=== PATIENT | male | born 1975 | race Caucasian/White ===

== ENCOUNTER 2016-09-10 10:28 | Day surgery (SDC) | payer BC ==
--- NOTE | 2016-09-06 13:36 | HP ---
PREOPERATIVE HISTORY AND PHYSICAL: DATE OF SURGERY/ADMISSION: 09/10/16 PROCEDURE: Right hand excision of mass. DATE OF OFFICE VISIT/ENCOUNTER: 09/02/16 ATTENDING SURGEON: Nohemi Castrejon MD (DICTATED BY KRISH SCHMITZ) CHIEF COMPLAINT: Mass, right hand. HISTORY OF PRESENT ILLNESS: This is a 41-year-old male who complains of a painful lump on the dorsal aspect of his right hand. It has been present for several months. It bothers him when he tries to move his fingers or when he reaches into his pocket. He is currently not working, but the things he tries to do around his house are bothersome to his hand. He would like to have the mass removed. He denies any tingling or numbness associated with it. He is right hand dominant. He has consented to proceed with surgery in the form of a right hand excision of mass. PAST MEDICAL HISTORY: 1. Fibromyalgia. 2. Chronic pain syndrome. 3. GERD. PAST SURGICAL HISTORY: 1. Cholecystectomy. 2. Several moles removed. CURRENT MEDICATIONS: 1. Alprazolam 0.5 mg daily p.r.n. 2. Cymbalta 60 mg daily. 3. Lyrica 50 mg daily. 4. Melatonin 3 mg daily. 5. Multivitamin with D3 daily. 6. Tizanidine HCL 2 mg 1 to 2 tabs daily p.r.n. 7. Vitamin D3 2000 mg daily. 8. Zaleplon 5 mg 1 tab daily. ALLERGIES: No known drug allergies. FAMILY MEDICAL HISTORY: Heart disease, hypertension, stroke, cancer, rheumatoid arthritis, multiple sclerosis. 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 He is a former smoker. He quit smoking 12 years ago, prior to that he smoked for 14 years a half a pack a day. He denies current recreational drug use and alcohol use. REVIEW OF SYSTEMS: General: Positive for weakness and fatigue. Negative for fevers, chills, or night sweats. No known problems with anesthesia in the past. HEENT: Positive for blurred vision. Negative for headache, lightheadedness, or syncopal episodes. Integumentary: Negative for abrasions, lesions, or open wounds. Cardiothoracic: Negative for hypertension, chest pain , palpitations, or edema. Pulmonary: Positive for sore throat and congestion. Negative for shortness of breath with exertion, chronic cough, or COPD. GI: Positive for GERD. Negative for nausea, vomiting, diarrhea or constipation. : Negative for nocturia, urinary frequency, urgency, history of UTIs, or kidney problems. Musculoskeletal: Positive for chronic back pain, arthritis and fibromyalgia along with current complaint. Neurological: Positive for anxiety. Negative for paresthesias, numbness, history of seizure, stroke, or epilepsy. Endocrine: Negative for diabetes or thyroid issues. Hematologic: Negative for easy bruising, anemia, excessive bleeding, or history of DVT. Infectious Disease: Negative for history of MRSA, hepatitis C, or HIV. PHYSICAL EXAMINATION GENERAL: A well-developed, well-nourished 41-year-old male, in no acute distress. VITAL SIGNS: Height 6 feet 1 inch, weight 247 pounds, pulse rate 70, blood pressure 124/78. HEENT: Normocephalic, atraumatic. Pupils are equal, round, and reactive to light and accommodation. Extraocular movements are intact. NECK: Supple. No palpable lymph nodes. Throat is clear. PULMONARY: Lungs are clear to auscultation bilaterally. No wheezes, rales or rhonchi. CARDIOVASCULAR: Regular rate and rhythm. S1, S2. No murmurs, rubs or gallops. No edema. ABDOMEN: Positive bowel sounds, soft, nontender. NEUROLOGIC: Alert and oriented x3. Cranial nerves II through XII are intact. Sensation is intact to light touch. MUSCULOSKELETAL: On exam of his right upper extremity, he has a tender mass on the dorsal aspect of his hand at the base of his second and third metacarpals with flexion and extension. His extensor tendon is clipped over the mass. The mass is tender to palpation. He has full range of motion in his fingers as well as his wrist. Neurovascular function is intact. There is a negative Tinel 's over the mass. IMAGING STUDIES: X-rays, AP, lateral and oblique of the right hand appear normal. IMPRESSION: Right hand mass. PLAN: The patient is scheduled to undergo a right hand excision of mass with Dr. Castrejon on 09/10/16. He will return to the office in 10 to 14 days postop for followup and suture removal. A prescription for Ultracet was e-scribed to the patient's pharmacy for postoperative pain management. KRISH SCHMITZ [id number]/[facility] #: [id number] [facility]PITALJamar
[~2016-09-10 10:28] MED LIST: Acetaminophen TAB* 325 MG PO PRN; Buffered Lidocaine 0.9% SYRIN* 5 ML/SYR SYRINGE INTRADERM ONE; DiMENhydriNATE IV* 50 MG/ML VIAL IV PUSH PRN; Famotidine IV* 10 MG/ML 2 ML (20 mg) IV ONE; oxyCODONE TAB* 5 MG TAB PO PRN
[2016-09-10] MEDS ORDERED: Famotidine IV* 10 MG/ML 2 ML (20 mg) ONE (10:39)
[2016-09-10] MEDS ORDERED: Buffered Lidocaine 0.9% SYRIN* 5 ML/SYR SYRINGE ONE (10:56)
[2016-09-10] MEDS ORDERED: Ondansetron INJ* 2 MG/ML VIAL ONE ×2 (12:00)
[2016-09-10] MEDS ORDERED: Ketorolac INJ* 30 MG/ML 1 ML VIAL ONE ×2 (12:00)
[2016-09-10] MEDS ORDERED: Lidocaine 2% PF * 5 ML VIAL ONE (12:00)
[2016-09-10] MEDS ORDERED: fentaNYL* 50 MCG/ML 2 ML VIAL (100 MCG VIAL) ONE (12:00)
[2016-09-10] MEDS ORDERED: Midazolam* 1 MG/ML 5 ML VIAL (5 MG) ONE (12:00)
[2016-09-10] MEDS ORDERED: Propofol* 10 MG/ML 20 ML BTL IV PUSH ONE (12:00)
[2016-09-10] MEDS ORDERED: Lidocaine 1% INJ* 10 MG/ML 30 ML SDV ONE (12:38)
[2016-09-10 13:53] VITALS: BP 120/92
--- NOTE | 2016-09-11 09:53 | OP ---
DATE OF OPERATION: 09/10/16 [facility] DATE OF : 79 SURGEON: Dr. Castrejon. ORGAN TUNER: KRISH Gandhi ANESTHESIOLOGIST: Radha Mulligan MD ANESTHESIA: Local MAC. PRE-OP DIAGNOSIS: Right hand mass. POST-OP DIAGNOSIS: Right hand mass. PROCEDURE: Remove right hand mass. ESTIMATED BLOOD LOSS: Zero. TOURNIQUET TIME: About 15 minutes. INDICATIONS FOR PROCEDURE: Rustam is a 41-year-old male who has a painful mass on the dorsal aspect of his right wrist. He presents for removal. DESCRIPTION OF PROCEDURE: The patient was brought to the operating room, was given a sedation anesthetic, and a local infiltration of 10 cc of 1% of plain lidocaine overlying the dorsal hand mass. The skin of his right hand and forearm was prepped and draped in the usual sterile fashion. The hand and forearm were exsanguinated and the tourniquet elevated to 250 mmHg. A transverse incision was made, centered over the mass. We dissected bluntly through the subcutaneous tissue, down to the mass, which appeared to be a ganglion cyst and metacarpal boss emanating from the base of the third metacarpal and the dorsal aspect of the capitate. The cyst was removed and then a Haleigh osteotome and rongeur were used to remove the bony prominence. The raw bone surface was covered with bone wax and the wound was irrigated. The skin edges were reapproximated with 4-0 nylon suture. The wound was dressed with Xeroform, 4x4, Webril, and an Alex wrap. The patient tolerated the procedure well and was brought to the recovery room in good condition. [id number]/[facility] #: [id number] [facility]
== END 2016-09-10 14:05 | disposition home or self-care (01) ==
LOC: OREAST 10:28
PROVIDERS: ATTEND Orthopaedic Surgery
DX: M67.441 Ganglion, right hand (principal); Z87.891 Personal history of nicotine dependence
CPT/HCPCS: 88305; 88311; J1885; J2001; J2250; J2405; J2704; J3010

== ENCOUNTER 2016-10-28 08:51 | Emergency (ER) | payer BC ==
[2016-10-28 09:01] VITALS: BP 128/78
--- NOTE | 2016-10-28 09:48 | RAD ---
HISTORY: Shortness of breath COMPARISONS: None VIEWS: 4: Frontal dual-energy and lateral views of the chest. FINDINGS: CARDIOMEDIASTINAL SILHOUETTE: The cardiomediastinal silhouette is normal. ADOLFO: The adolfo are normal. PLEURA: The costophrenic angles are sharp. No pleural abnormalities are noted. LUNG PARENCHYMA: There is a calcified granuloma of the lingula ABDOMEN: The upper abdomen is clear. There is no subphrenic gas. BONES AND SOFT TISSUES: No bone or soft tissue abnormalities are noted. OTHER: None. IMPRESSION: CALCIFIED GRANULOMA OF THE LEFT LOWER LUNG. NO ACTIVE CARDIOPULMONARY DISEASE.
--- NOTE | 2016-10-28 10:07 | UC ---
Brandan Nava Angela, scribed for [facility] HealthDavid MD on 10/28/16 at 0906 . Respiratory Complaint HPI - HPI Summary HPI Summary: This pt is a 41 y/o male presenting to [facility] c/o increased SOB over the last 3-4 weeks, particularly over the last 2 weeks. Pt reports he saw his PCP at [place] 4 weeks ago who referred him to a sail cutter. He has an upcoming appointment on but comes in today because his SOB has increased and couldn't wait. 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 He reports wheezing, struggling to breathe and feels like his throat is closing off. Pt denies cough, chest pain, fever, chills, abd pain, sore throat, nausea, vomiting , decreased appetite. Pt endorses mild diarrhea. He takes medical marijuana for the pain, muscle spasms, and anxiety. Pt states he is in the process of applying for disability due to fibromyalgia. Pt has been hospitalized for Lyme' s disease. His last chest XR was a while ago. MDs Note: 41 y/o male with stable vital signs and respiratory rate of 22, blood pressure of 128/78, pulse ox of 100, c/o 4/10 discomfort with shortness of breath. 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 The pt also has fibromyalgia, raynauds, and has had a ganglion removed from the right wrist this month. He takes anti-anxiety meds and sleep aids. He has Lyme disease. He has no known allergies. Nurses Note: increased sob - History of Current Complaint Chief Complaint: UCRespiratory Stated Complaint: SOB Time Seen by Provider: 10/28/16 08:53 Hx Obtained From: Patient Onset/Duration: Lasting Weeks Aggravating Factors: Deep Breaths Alleviating Factors: Nothing Associated Signs And Symptoms: Positive: Dyspnea, Wheezing. Negative: Fever, Chills, Calf Pain - Allergies/Home Medications Allergies/Adverse Reactions: Allergies Allergy/AdvReac Type Severity Reaction Status Date / Time No Known Allergies Allergy Verified 10/28/16 08:54 PMH/Surg Hx/FS Hx/Imm Hx - Additional Past Medical History Additional PMH: PMHx: fibromyalgia osteoarthritis Other Endocrine History: DENIES: Diabetes Other Cardiovascular History: DENIES: HTN, cardiac disease Other Respiratory History: DENIES: COPD, Asthma Psychological History: Anxiety - Surgical History Surgical History: Yes Surgery Procedure, Year, and Place: gallbladder 2014 with hernia repair, [facility] - Family History Known Family History: Positive: Cardiac Disease, Other - Cancer. Mother: Multiple sclerosis, lung infection. - Social History Alcohol Use: None Substance Use Type: None Smoking Status (MU): Former Smoker Type: Cigarettes Amount Used/How Often: pack a day for 14 yrs Have You Smoked in the Last Year: No When Did the Patient Quit Smoking/Using Tobacco: age 30 - Immunization History Most Recent Influenza Vaccination: unknown Most Recent Tetanus Shot: unknown Most Recent Pneumonia Vaccination: unknown Review of Systems Constitutional: Negative Skin: Negative Eyes: Negative ENT: Negative Respiratory: Shortness Of Breath Cardiovascular: Negative Gastrointestinal: Diarrhea Motor: Negative Neurovascular: Negative Musculoskeletal: Negative Neurological: Negative All Other Systems Reviewed And Are Negative: Yes Physical Exam Triage Information Reviewed: Yes Vital Signs: Initial Vital Signs Temp 98 F 10/28/16 08:58 Pulse 74 10/28/16 08:58 Resp 22 10/28/16 08:58 BP 128/78 10/28/16 08:58 Pulse Ox 100 10/28/16 08:58 Vital Signs Reviewed: Yes - Additional Comments The patient is well-nourished in no acute distress and in no acute pain. The skin is warm and dry and skin color reflects adequate perfusion. HEENT: The head is normocephalic and atraumatic. The pupils are equal and reactive. The conjunctivae are clear and without drainage. Nares are patent and without drainage. Mouth reveals moist mucous membranes and the throat is without erythema and exudate. The external ears are intact. The ear canals are patent and without drainage. The tympanic membranes are intact. Neck is supple with full range of motion and non-tender. There are no carotid bruits. There is no neck vein distension. Respiratory: Chest is non-tender. Lungs are clear to auscultation and breath sounds are symmetrical and equal. Cardiovascular: Hear is regular rate and rhythm. There is no murmur or rub auscultated. There is no peripheral edema and pulses are symmetrical and equal. Abdomen: The abdomen is soft and non-tender. There are normal bowel sounds heard in all four quadrants and there is no organomegaly palpated. Musculoskeletal: There is no back pain noted. Extremities are non-tender with full range of motion. There is good capillary refill. There is no peripheral edema or calf tenderness elicited. Neurological: Patient is alert and oriented to person, place and time. The patient has symmetrical motor strength in all four extremities. Cranial nerves are grossly intact. Deep tendon reflexes are symmetrical and equal in all four extremities. Psychiatric: THE PATIENT IS ANXIOUS AND FEELS SHORT OF BREATH. UC Diagnostic Evaluation - Laboratory O2 Sat by Pulse Oximetry: 100 - Radiology Xray Interpretation: Positive (See Comments) - Chest XR IMPRESSION: Calcified granuloma of the left lower lung. No active cardiopulmonary disease. ED physician has reviewed this radiology report and agrees. Radiology Interpretation Completed By: Radiologist Respiratory Course/Dx - Course Course Of Treatment: Medications have been included in the original chart and reviewed. Patient is Urgent/Emergent. BP elevated due to current condition w/o HTN in PMH. On exam, THE PATIENT IS ANXIOUS AND FEELS SHORT OF BREATH. The chest XR shows calcified granuloma of the left lower lung. No active cardiopulmonary disease. ED physician has reviewed this radiology report and agrees. MDM: I discussed the pts condition with him at length. There is no evidence of structural problems except for a calcified granuloma of the left lower lung. His lung examination does not show wheezes. He is helped by various changes of position. I discussed with him other strategies to help him breathe more easily. I also discussed his anxiety with him. I will put him on a trial of albuterol with a spacer to see if this assists him and gives added information for his next appointment with a sail cutter. - Differential Dx/Diagnosis Differential Diagnosis/HQI/PQRI: CHF, Pneumothorax, Other - Pneumonia Provider Diagnoses: Dyspnea Discharge - Discharge Plan Condition: Stable Disposition: HOME Prescriptions: Albuterol HFA INHALER* [Ventolin HFA Inhaler*] 1 - 2 puff INH Q4H PRN #1 mdi PRN Reason: Shortness Of Breath Spacer/Aerosol-Holding Chamber [Aerochamber Mv] 1 mis XX Q6HR #1 mis Patient Education Materials: Dyspnea (ED), Dyspnea Scale and Exercise (ED) Referrals: Pedro Luis Christianson MD [Primary Care Provider] - Additional Instructions: WE DISCUSSED: Your x ray does not show a pneumonia or infection. You do have some chronic changes that may contribute to your feeling of shortness of breath. There is no evidence of obstruction in your throat. I have given you information about shortness of breath and a "dyspnea scale" so that you can document how you feel on different days or at different times of day to tell you doctor. As you know, try to find what feels better: cool air. Try pursed lips and holding your arms about your head to open your lungs. For your information, your x ray diagnosis is: CALCIFIED GRANULOMA OF THE LEFT LOWER LUNG. NO ACTIVE CARDIOPULMONARY DISEASE. Try albuterol and spacer, 2 puffs, 3 times a day for 7 days. Follow up with lung doctor. The documentation as recorded by the Brandan skinner Angela accurately reflects the service I personally performed and the decisions made by me, David Lorenzana MD.
== END 2016-10-28 10:10 | disposition home or self-care (01) ==
LOC: UCEAST 08:51
DX: R06.00 Dyspnea, unspecified (principal); J98.4 Other disorders of lung; Z87.891 Personal history of nicotine dependence
CPT/HCPCS: 71020; 99212; G0463

== ENCOUNTER 2017-08-02 07:14 | Emergency (ER) | payer BC ==
[2017-08-02 07:29] VITALS: BP 132/92
--- NOTE | 2017-08-30 09:25 | UC ---
Bernabe Nava Gabriel, scribed for Eve Meehan MD on 08/02/17 at 0802 . Skin Complaint HPI - HPI Summary HPI Summary: This patient is a 42 year old M presenting to [place] with a chief complaint of rashes and bug bites that began after he camped in the [facility] 10 days ago. The pt was there for 2 days and reports having two bullseye rashes that have dissipated before being seen today. The patient rates the pain 0/10 in severity. Patient reports several bites on bilateral LEs and UEs. He has been using calamine lotion, Benadryl, and tecnu-wash. Pt is unsure of is his last tetanus shot. Hx lyme. Pt will be seeing PCP tomorrow for a follow up appointment. - History of Current Complaint Chief Complaint: UCSkin Time Seen by Provider: 08/02/17 07:52 Stated Complaint: RASH Hx Obtained From: Patient Onset/Duration: Lasting Weeks - 1, Still Present Skin Exposure Onset/Duration: Weeks Ago Timing: Constant Onset Severity: Mild Current Severity: Mild Pain Intensity: 0 Pain Scale Used: 0-10 Numeric Associated Signs & Symptoms: Positive: Rash - Allergy/Home Medications Allergies/Adverse Reactions: Allergies Allergy/AdvReac Type Severity Reaction Status Date / Time No Known Allergies Allergy Verified 08/12/17 16:57 Review of Systems Constitutional: Negative - fever Skin: Rash, Other - several insect bites scattered. All Other Systems Reviewed And Are Negative: Yes PMH/Surg Hx/FS Hx/Imm Hx - Additional Past Medical History Additional PMH: lyme Neurological History: Other Other Neurological History: fibromyalgia Other History Of: Negative For: HIV, Anticoagulant Therapy - Surgical History Surgical History: Yes Surgery Procedure, Year, and Place: gallbladder 2014 with hernia repair, [facility] - Family History Known Family History: Positive: Cardiac Disease, Other - Cancer. Mother: Multiple sclerosis, lung infection. Family History: KIDNEY STONES - DAD - Social History Alcohol Use: None Substance Use Type: Marijuana Substance Use Comment - Amount & Last Used: medicinal Smoking Status (MU): Former Smoker Type: Cigarettes Amount Used/How Often: pack a day for 14 yrs Have You Smoked in the Last Year: No When Did the Patient Quit Smoking/Using Tobacco: age 30 - Immunization History Most Recent Influenza Vaccination: unknown Most Recent Tetanus Shot: unknown Most Recent Pneumonia Vaccination: unknown Physical Exam - Summary Physical Exam Summary: Appearance: Well-Nourished Eye Exam: Normal Respiratory Exam: Normal, no dyspnea, no tachypnea, normal respiratory rate. Chest non-tender, Lungs clear, Normal breath sounds, No respiratory distress, No accessory muscle use Cardiovascular Exam: Normal Cardiovascular: Heart rate regular, good general skin color, good capillary refill, No Murmur, Pulses Normal Abdominal Exam: Normal Abdomen Description: Nontender, No Organomegaly, Soft Bowel Sounds: Present Musculoskeletal Exam: Normal Musculoskeletal: Strength Intact Neurological Exam: Normal: nonfocal, grossly intact Psychological Exam: Normal: conversing easily and appropriately Skin Exam: Triage Information Reviewed: Yes Appearance: Well-Nourished Vital Signs: Initial Vital Signs Temp 98.9 F 08/02/17 07:26 Pulse 80 08/02/17 07:26 Resp 18 08/02/17 07:26 BP 132/92 08/02/17 07:26 Pulse Ox 100 08/02/17 07:26 Vital Signs Reviewed: Yes Eye Exam: Normal - grossly normal ENT Exam: Normal ENT: Positive: Normal ENT inspection, Pharynx normal Neck exam: Normal Neck: Positive: Supple, Nontender Respiratory Exam: Normal Respiratory: Positive: Chest non-tender, Lungs clear, Normal breath sounds, No respiratory distress Cardiovascular Exam: Normal Cardiovascular: Positive: RRR, Pulses Normal, Brisk Capillary Refill Abdominal Exam: Normal Abdomen Description: Positive: Nontender Musculoskeletal Exam: Normal - moves x 4 ext's gait steady Neurological Exam: Normal - grossly nonfocal Psychological Exam: Normal - conversing easily and appropriately Skin Exam: Other - several scattered lesions c/w insect bites, upper and lower ext's. + redness, c/w local dermatitis, does not appear c/w cellulitis or abscess Course/Dx - Course Course Of Treatment: Reviewed coa / tx plan, encourage pcp f/u. questions as posed answered to the best of my ability. - Diagnoses Provider Diagnoses: Insect bites, dermatitis Discharge - Sign-Out/Discharge Documenting (check all that apply): Patient Departure - Discharge Plan Condition: Stable Disposition: HOME Prescriptions: hydrOXYzine HCL TAB* [Atarax 25 MG TAB*] 25 mg PO TID PRN #30 tab PRN Reason: Itching Patient Education Materials: Insect Bite or Sting (ED), General Allergic Reaction (ED) Forms: *Work Release Referrals: Pedro Luis Christianson MD [Primary Care Provider] - Additional Instructions: Your blood pressure was elevated during today's visit, 132/92. Please follow up with your primary care provider in 1-2 weeks. Seek medical attention for worse or new problems in the meantime. Follow up Dr. Groves as scheduled tomorrow. Advise your primary care doctor and specialist of your possible tick bite. - Billing Disposition and Condition Condition: STABLE Disposition: Home The documentation as recorded by the Bernabe skinner Gabriel accurately reflects the service I personally performed and the decisions made by me, Eve Meehan MD.
== END 2017-08-02 08:30 | disposition home or self-care (01) ==
LOC: UCEAST 07:14
DX: L30.9 Dermatitis, unspecified (principal); S40.862A Insect bite (nonvenomous) of left upper arm, initial encounter; S40.861A Insect bite (nonvenomous) of right upper arm, initial encounter; S80.862A Insect bite (nonvenomous), left lower leg, initial encounter; S80.861A Insect bite (nonvenomous), right lower leg, initial encounter; W57.XXXA Bitten or stung by nonvenomous insect and other nonvenomous arthropods, initial encounter; Y93.89 Activity, other specified; Y92.89 Other specified places as the place of occurrence of the external cause; M79.7 Fibromyalgia; Z82.49 Family history of ischemic heart disease and other diseases of the circulatory system; Z80.9 Family history of malignant neoplasm, unspecified; Z83.6 Family history of other diseases of the respiratory system; Z84.1 Family history of disorders of kidney and ureter; Z87.891 Personal history of nicotine dependence
CPT/HCPCS: 87798; 99212; G0463

== ENCOUNTER 2017-08-12 16:35 | Emergency (ER) | payer BC ==
--- OUTSIDE RECORDS SUMMARY | 2017-08-12 16:45 | XMS REPORT ---
:1975 External Reference #:[id number] Author Organization [facility] Address [address] [place] [address] [place] [address] Phone [phone] Care Team Providers Name Role Phone [facility] Care Team Information Manager Of Revenue Unavailable Pedro Luis Christianson MD Primary Care Physician Unavailable Payers Type Date Identification Numbers Payment Provider Subscriber Commercial Effective: Policy Number: RODGER Kwok 2016 [id number] Group Name: [employer] [address] [address] PayID: [id number] ARTHUR Jordan [address] Medigap Part B Effective: 2016 Policy Number: RODGER Kwok [id number] Expires: 2016 PayID: [id number] [address] [address] ARTHUR Jordan [address] Workers Compensation Effective: Policy Number: Khushboo Kwok 2013 [id number] Onset: 2013 PayID: [id number] [address] [place] [address] Problems Date Description Provider Status Onset: 12/13/2016 Gallstone Jacinda Briscoe MD Active Onset: 12/28/2016 Obstructive sleep apnea Radha Burks DNP, RN, Active syndrome CREATIVE DIRECTOR-BC Onset: 12/28/2016 Hypersomnia Radha Burks DNP, RN, Active CREATIVE DIRECTOR-BC Family History Date Family Member(s) Problem(s) Comments General Arthritis General Arthritis, Osteo General Rheumatoid Arthritis General Multiple Sclerosis (MS) General Lupus General Raynaud's is in the family as well General Cancer General Heart Disease General Hypertension General Stroke Father Diverticulitis Mother Multiple Sclerosis (MS) Mother Rheumatoid Arthritis Mother Bladder Cancer Siblings 1 older brother Social History Type Date Description Comments Marital Status Lives With Spouse Occupation Unemployed Cigarette Use Former Cigarette Smoker Quit in 2008 Cigarette Use Former Cigarette Smoker 5-10 5-6 cigarettes for 15 years Cigarettes Daily ETOH Use Denies alcohol use Smoking Patient is a former smoker Recreational Drug Use Denies Drug Use Daily Caffeine Consumes on average 1 soda per day Exercise Type/Frequency Does not exercise chronic pain interferes with exercise Allergies, Adverse Reactions, Alerts Date Description Reaction Status Severity Comments 03/07/2013 NKDA active Medications Medication Date Status Form Strength Qnty SIG Indications Ordering Provider Hydroxyzine Active Tablets 25mg 90tabs Take one Rodney HCL 018 capsule/ta Germain, b every 8 M.D. hours (total of 3 per day) as needed for itching Voltaren Active Gel 1% 200uni apply 2 Rodney 018 ts grams Germain, twice M.D. daily as needed for pain to the hands Cymbalta Active Caps DR 60mg 180cap take 2 by M79.7 Rodney 017 Part s mouth Germain, every at M.D. bedtime Alprazolam Active Tablets 0.5mg 30tabs take one Rodney 017 tablet 20 Germain, minutes M.D. before bed as needed for anxiety Lyrica Active Capsules 50mg 30caps take 1 tab M79.7 Rodney 017 by mouth Germain, at at M.D. bedtime Zaleplon Active Capsules 5mg 30caps take 1 tab G47.00 Rodney 017 at bedtime Germain, daily for M.D. insomnia Z79.899 Multi Vitamin 04/21/2016 Active Tablets 1 by mouth Cheryl Sage Daily With D3 every day Aramis Crowley Tizanidine HCL 04/19/2016 Active Capsules 2mg 60caps 1 or 2 cap Z79.89 Rodney Germain, by mouth as 9 M.D. needed at night for spasms M79.7 Medical Active daily and Unknown Marijuana With prn CBD Ibuprofen 200 Active Tablets 200mg Unknown Amoxicillin Active Capsules 500mg 2 tabs by Unknown mouth twice daily for 10 days Prednisone Active Tablets Unsure as directed Unknown Tramadol 09/02/2016 - Hx Tablets 37.5-325m 16t 1 tab by Nohemi Hydrochloride/Ac 10/13/2016 g abs mouth every Aramis Castrejon etaminophen 6 hours as needed pain Cymbalta 06/28/2016 - Hx Caps 30mg 180 take 3 M79 Zsofia 09/01/2016 Part cap tabs daily .7 DENYS Shetty s Amitriptyline 04/21/2016 - Hx Tablets 10mg 30t 1 tabs by Z79 Cheryl Sage HCL 08/17/2016 abs mouth as .89 lianet Crowley 9 Karol.DLyndsey every other night at bedtime M79.7 Cymbalta 04/08/2016 - Hx Caps 30mg 180caps take 3 M79.7 Rodney 06/28/2016 Part daily tabs Aramis Groves Doxycycline 09/28/2013 - Hx Tablets 100mg 60tabs 1 by mouth Singh 03/03/2016 twice a D. day Aramis Price Cyclobenzaprine - Hx Tablets 10mg 45tabs one po bid Unknown HCL 03/30/2013 prn spasm Hydrocodone/Acetam - Hx Tablets 5-325mg 40tabs 1 q 6 hr Unknown inophen 10/15/2013 prn Zofran - Hx Tablets 8mg prn Unknown 03/03/2016 Ibuprofen - Hx Capsules 200mg 3 po tid Unknown 03/03/2016 as needed Nifedical XL - Hx Tablets ER 30mg take 1 Unknown 04/08/2016 24HR tablet by mouth once daily Naproxen - Hx Tablets 250mg 1 tablet Unknown 04/08/2016 by mouth twice a day as needed pain, with foods Vitamin D3 - Hx Capsules 2000mg 1 tabs/day Unknown 11/14/2016 Melatonin - Hx Capsules 3mg 1 tab by Unknown 12/12/2016 mouth every night at bedtime prn Benadryl Allergy - Hx Capsules 25mg Unknown 08/03/2017 Hydroxyzine HCL - Hx Tablets 25mg Unknown 08/03/2017 Medications Administered in Office Medication Date Status Form Strength Qnty SIG Indications Ordering Provider No Injection 06/09/19 Administered Injection Rodney Groves M.D. No Injection 06/09/19 Administered Injection Rodney Groves M.D. No Injection 06/09/19 Administered Injection Rodney Groves M.D. No Injection 06/09/19 Administered Injection Rodney Groves M.D. Immunizations CPT Code Status Date Vaccine Lot # [id number] Given 12/14/2016 Influenza Virus Vaccine, Quadrivalent, Split, [id number] Preservative Free Vital Signs Date Vital Result Comment 08/03/2017 Height 73 inches 6'1" Weight 248.00 lb Heart Rate 84 /min BP Systolic Sitting 126 mmHg BP Diastolic Sitting 84 mmHg Respiratory Rate 14 /min Pain Level 6 BMI (Body Mass Index) 32.7 kg/m2 06/08/2017 Height 73 inches 6'1" Weight 247.50 lb Heart Rate 60 /min BP Systolic Sitting 101 mmHg BP Diastolic Sitting 74 mmHg Respiratory Rate 14 /min Body Temperature 97.6 F BMI (Body Mass Index) 32.7 kg/m2 05/23/2017 Height 73 inches 6'1" Weight 247.00 lb Heart Rate 72 /min BP Systolic Sitting 117 mmHg BP Diastolic Sitting 81 mmHg Respiratory Rate 14 /min Pain Level 6 BMI (Body Mass Index) 32.6 kg/m2 12/28/2016 Height 73 inches 6'1" Weight 253.00 lb Heart Rate 72 /min BP Systolic Sitting 124 mmHg Rue large cuff BP Diastolic Sitting 84 mmHg Rue large cuff Respiratory Rate 14 /min O2 % BldC Oximetry 98 % On Ra BMI (Body Mass Index) 33.4 kg/m2 12/14/2016 Height 73 inches 6'1" Weight 255.00 lb w/ shoes Heart Rate 62 /min reg BP Systolic Sitting 104 mmHg Lue, lg cuff BP Diastolic Sitting 74 mmHg Lue, lg cuff Respiratory Rate 16 /min Pain Level 6 all over BMI (Body Mass Index) 33.6 kg/m2 12/13/2016 Height 73 inches 6'1" Weight 258.00 lb Heart Rate 72 /min BP Systolic Sitting 118 mmHg BP Diastolic Sitting 84 mmHg Respiratory Rate 14 /min O2 % BldC Oximetry 98 % BMI (Body Mass Index) 34.0 kg/m2 Neck Circumference in inches 18.5 10/13/2016 Height 73 inches 6'1" Weight 249.00 lb Heart Rate 80 /min BP Systolic Sitting 120 mmHg BP Diastolic Sitting 80 mmHg Respiratory Rate 14 /min Pain Level 8 BMI (Body Mass Index) 32.8 kg/m2 09/22/2016 Height 73 inches 6'1" Weight 247.00 lb Heart Rate 68 /min BP Systolic 118 mmHg BP Diastolic 80 mmHg Respiratory Rate 16 /min Body Temperature 96.5 F Pain Level 4 BMI (Body Mass Index) 32.6 kg/m2 09/08/2016 Height 73 inches 6'1" Heart Rate 80 /min BP Systolic Sitting 110 mmHg BP Diastolic Sitting 74 mmHg Respiratory Rate 14 /min Pain Level 6 09/02/2016 Height 73 inches 6'1" Weight 247.00 lb Heart Rate 70 /min BP Systolic 124 mmHg BP Diastolic 78 mmHg Respiratory Rate 16 /min Body Temperature 97.4 F Pain Level 5 BMI (Body Mass Index) 32.6 kg/m2 09/01/2016 Height 73 inches 6'1" Weight 247.00 lb Heart Rate 72 /min BP Systolic Sitting 122 mmHg BP Diastolic Sitting 68 mmHg Respiratory Rate 14 /min Pain Level 7 BMI (Body Mass Index) 32.6 kg/m2 08/17/2016 Height 73 inches 6'1" Weight 243.00 lb Heart Rate 68 /min BP Systolic Sitting 120 mmHg BP Diastolic Sitting 86 mmHg Respiratory Rate 14 /min Pain Level 7 BMI (Body Mass Index) 32.1 kg/m2 07/29/2016 Height 73 inches 6'1" Weight 246.00 lb Heart Rate 76 /min BP Systolic Sitting 124 mmHg BP Diastolic Sitting 90 mmHg Respiratory Rate 14 /min BMI (Body Mass Index) 32.5 kg/m2 06/28/2016 Weight 250.00 lb Heart Rate 71 /min BP Systolic Sitting 126 mmHg BP Diastolic Sitting 80 mmHg Respiratory Rate 15 /min Pain Level 5 O2 % BldC Oximetry 98 % 05/31/2016 Height 72.5 inches 6'0.50" Weight 247.00 lb Heart Rate 84 /min BP Systolic 110 mmHg BP Diastolic 60 mmHg O2 % BldC Oximetry 98 % BMI (Body Mass Index) 33.0 kg/m2 04/21/2016 Height 72.5 inches 6'0.50" Weight 245.00 lb Heart Rate 76 /min BP Systolic Sitting 122 mmHg BP Diastolic Sitting 84 mmHg Respiratory Rate 14 /min BMI (Body Mass Index) 32.8 kg/m2 04/19/2016 Height 72.5 inches 6'0.50" Weight 245.00 lb Heart Rate 84 /min BP Systolic Sitting 120 mmHg BP Diastolic Sitting 80 mmHg Respiratory Rate 14 /min Body Temperature 97.4 F Pain Level 7 BMI (Body Mass Index) 32.8 kg/m2 04/08/2016 Height 72.5 inches 6'0.50" Weight 242.38 lb Heart Rate 72 /min BP Systolic Sitting 120 mmHg BP Diastolic Sitting 80 mmHg Respiratory Rate 14 /min Body Temperature 98.6 F BMI (Body Mass Index) 32.4 kg/m2 03/04/2016 Height 72.5 inches 6'0.50" Weight 246.00 lb Heart Rate 72 /min BP Systolic Sitting 120 mmHg BP Diastolic Sitting 88 mmHg Respiratory Rate 14 /min Body Temperature 98.0 F BMI (Body Mass Index) 32.9 kg/m2 10/16/2013 Height 72.5 inches 6'0.50" Weight 254.00 lb Heart Rate 80 /min BP Systolic Sitting 110 mmHg BP Diastolic Sitting 62 mmHg Respiratory Rate 14 /min Body Temperature 98.2 F BMI (Body Mass Index) 34.0 kg/m2 03/30/2013 Height 72.5 inches 6'0.50" Weight 254.00 lb Heart Rate 100 /min BP Systolic Sitting 120 mmHg BP Diastolic Sitting 88 mmHg BMI (Body Mass Index) 34.0 kg/m2 03/12/2013 Height 73 inches 6'1" Weight 252.00 lb Heart Rate 68 /min BP Systolic Sitting 122 mmHg BP Diastolic Sitting 78 mmHg BMI (Body Mass Index) 33.2 kg/m2 03/07/2013 Height 73 inches 6'1" Weight 251.25 lb Heart Rate 68 /min BP Systolic Sitting 120 mmHg BP Diastolic Sitting 86 mmHg BMI (Body Mass Index) 33.1 kg/m2 Results Test Date Test Result H/L Range Note Connective Tissue Panel 05/23/2017 Anti-Nuclear Antibody 0.4 U 1 Cyclic Citrullinated Peptide <15.6 U 2 Interpretation See Comment 3 Laboratory test finding 05/23/2017 Rheumatoid Factor <10 IU/mL 0-14 4 CBC Auto Diff 05/23/2017 White Blood Count 6.5 10^3/uL 3.5-10.8 Red Blood Count 4.73 10^6/uL 4.0-5.4 Hemoglobin 14.8 g/dL 14.0-18.0 Hematocrit 44 % 42-52 Mean Corpuscular Volume 93 fL 80-94 Mean Corpuscular Hemoglobin 31 pg 27-31 Mean Corpuscular HGB Conc 34 g/dL 31-36 Red Cell Distribution Width 14 % 10.5-15 Platelet Count 344 10^3/uL 150-450 Mean Platelet Volume 8.1 um3 7.4-10.4 Abs Neutrophils 3.6 10^3/uL 1.5-7.7 Abs Lymphocytes 2.1 10^3/uL 1.0-4.8 Abs Monocytes 0.7 10^3/uL 0-0.8 Abs Eosinophils 0.1 10^3/uL 0-0.6 Abs Basophils 0.1 10^3/uL 0-0.2 Abs Nucleated RBC 0 10^3/uL Granulocyte % 54.5 % 38-83 Lymphocyte % 32.5 % 25-47 Monocyte % 10.1 % High 0-7 Eosinophil % 1.2 % 0-6 Basophil % 1.7 % 0-2 Nucleated Red Blood Cells % 0.1 Comp Metabolic Panel 05/23/2017 Sodium 137 mmol/L 133-145 Potassium 4.1 mmol/L 3.5-5.0 Chloride 102 mmol/L 101-111 Co2 Carbon Dioxide 30 mmol/L 22-32 Anion Gap 5 mmol/L 2-11 Glucose 84 mg/dL 70-100 Blood Urea Nitrogen 9 mg/dL 6-24 Creatinine 1.00 mg/dL 0.67-1.17 BUN/Creatinine Ratio 9.0 8-20 Calcium 9.5 mg/dL 8.6-10.3 Total Protein 7.2 g/dL 6.4-8.9 Albumin 4.6 g/dL 3.2-5.2 Globulin 2.6 g/dL 2-4 Albumin/Globulin Ratio 1.8 1-3 Total Bilirubin 0.80 mg/dL 0.2-1.0 Alkaline Phosphatase 43 U/L 34-104 Alt 32 U/L 7-52 Ast 20 U/L 13-39 Egfr Non- 82.8 >60 Egfr 106.4 >60 5 Laboratory test finding 05/23/2017 Vitamin D, 1,25 Dihydroxy 42 pg/mL 18- 64 6 Vitamin B12 And Folate 05/23/2017 Vitamin B12 542 pg/mL 180-914 7 Serum Folic Acid (Folate) > 20.00 ng/mL >3.99 Laboratory test finding 05/23/2017 TSH (Thyroid Stim Horm) 0.49 mcIU/mL 0.34-5.60 Hla B27 05/23/2017 Hla B27 Negative 8 Hla B27 Interp See Comment 9 Laboratory test finding 09/10/2016 Surgical Pathology SEE RESULT BELOW 10, 11 Laboratory test finding 04/21/2016 Anti Ssa/Ro <0.2 U 12 Anti SSB LA <0.2 U 13 Laboratory test finding 04/10/2016 Creatine Kinase(CK) 144 U/L 10-223 14 Angiotensin Converting Enzyme 14 U/L 8 - 53 15 Ssa/SSB Abs Igg 04/10/2016 SS-A/Ro Antibody <0.2 U 16 SS-B/La Antibody <0.2 U 17 Anca AB Ser If 04/10/2016 C-Anca Negative Negative P-Anca Negative Negative 18 Cardiolipin Igg/Igm 04/10/2016 Phospholipid Ab IgM, S < 9.4 MPL 19 Phospholipid Ab IgG < 9.4 GPL 20 Laboratory test 04/10/2016 Aso (Antistreptolysin Negative IU/mL <200 Iu/mL 21 finding O) Titer Vitamin D 1,25 04/10/2016 Vitamin D Total 25(Oh) 27.7 ng/mL Low 30-50 22 And Vitamin D,2 Vitamin D, 1,25 Dihydroxy 63 pg/mL 18-64 23 Vitamin B12 And Folate Serum 04/10/2016 Vitamin B12 679 pg/mL 180-914 24 Folic Acid (Folate) > 20.00 ng/mL >3.99 25 Celiac Panel 04/10/2016 Tissue Transglutaminase IgA Ab <1.2 U/mL 26 Immunoglobulin A 174 mg/dL 61 - 356 Celiac Interpretation See Comment 27 Laboratory test finding 03/04/2016 TSH (Thyroid Stim 1.72 mcIU/mL 0.34- 5.60 Horm) Connective Tissue Panel 03/04/2016 Anti-Nuclear Antibody 0.3 U 28 Cyclic Citrullinated Peptide <15.6 U 29 Interpretation See Comment 30 Laboratory test finding 03/04/2016 Rheumatoid Factor <15 IU/mL <15 31 CBC Auto Diff 03/04/2016 White Blood Count 9.2 10^3/uL 3.5-10.8 Red Blood Count 5.01 10^6/uL 4.0-5.4 Hemoglobin 15.4 g/dL 14.0-18.0 Hematocrit 46 % 42-52 Mean Corpuscular Volume 92 fL 80-94 Mean Corpuscular Hemoglobin 31 pg 27-31 Mean Corpuscular HGB Conc 33 g/dL 31-36 Red Cell Distribution Width 14 % 10.5-15 Platelet Count 385 10^3/uL 150-450 Mean Platelet Volume 8 um3 7.4-10.4 Abs Neutrophils 4.9 10^3/uL 1.5-7.7 Abs Lymphocytes 3.2 10^3/uL 1.0-4.8 Abs Monocytes 0.8 10^3/uL 0-0.8 Abs Eosinophils 0.1 10^3/uL 0-0.6 Abs Basophils 0.1 10^3/uL 0-0.2 Abs Nucleated RBC 0.01 10^3/uL Granulocyte % 52.8 % 38-83 Lymphocyte % 34.9 % 25-47 Monocyte % 9.2 % High 1-9 Eosinophil % 1.6 % 0-6 Basophil % 1.5 % 0-2 Nucleated Red Blood Cells % 0.1 Laboratory test finding 03/04/2016 C Reactive Protein 3.27 mg/L < 5.00 32 1 REFERENCE VALUE <=1.0 (Negative) 2 REFERENCE VALUE <20.0 (Negative) 3 Tests for antibodies to dsDNA and OMAR antigens are not performed automatically unless the RHIANNA result is > or= 3.0 U. Studies performed at [facility] indicate that positive RHIANNA results <3.0 U are rarely accompanied by positive second order tests. Test Performed by: [address] [address] Performed by [email or web address], [address] [place] [id number] [email or web address], Justus Blum MD - Lab. Director Test Performed by: [email or web address] [address] [place] [address] 5 Because ethnic data is not always readily available, this report includes an eGFR for both -Americans and non- Americans. The National Kidney Disease Education Program (NKDEP) does not endorse the use of the MDRD equation for patients that are not between the ages of 18 and 70, are , have extremes of body size, muscle mass, or nutritional status, or are non- or non-. According to the National Kidney Foundation, irrespective of diagnosis, the stage of the disease is based on the level of kidney function: Stage Description GFR(mL/min/1.73 m(2)) 1 Kidney damage with normal or decreased GFR 90 2 Kidney damage with mild decrease in GFR 60-89 3 Moderate decrease in GFR 30-59 4 Severe decrease in GFR 15-29 5 Kidney failure <15 (or dialysis) 6 ADDITIONAL INFORMATION This test was developed and its performance characteristics determined by [facility] in a manner consistent with CLIA requirements. This test has not been cleared or approved by the U.S. Food and Drug Administration. Test Performed by: [facility] [employer] - [facility] [address] [place] [address] 7 Normal Range 180 to 914 Indeterminate Range 145 to 180 Deficient Range <145 8 REFERENCE VALUE Not Applicable 9 RESULT: HLA-B27 antigen was not detected. ADDITIONAL INFORMATION Method: Flow Cytometry Performing Laboratory CLIA# [id number] Test Performed by: [facility] - [address] [address] 10 [id number] SEE RESULT BELOW Name: RUSTAM KWOK : [address]: Nohemi Castrejon MD Acct: [id number] Unit: [id number] AGE: 41 Location: [facility] Re09/10/16 SEX: M Status: DEP [facility] SPEC: [id number] SHAE: 09/10/16-[address] [facility] [address]: Nohemi Castrejon MD REQ: [id number] RECD: 09/10/160178 STATUS: SOUT _ ORDERED: LEVEL 4 COMMENTS: [id number] FINAL DIAGNOSIS Soft tissue, right hand, excision: -- Ganglion cyst. PRE-OPERATIVE DIAGNOSIS Mass right hand GROSS DESCRIPTION The specimen is received in formalin labeled, Right Hand Mass, and consists of a 2.0 x 1.7 x 0.4 cm aggregate of yellow-white irregular bone fragments which are entirely submitted in cassette A following brief decalcification. Received separately in the same container is a 1.5 x 0.8 by up to 0.3 cm qvdetd-vydqi-vags fibrocartilaginous rubbery tissue fragment which is entirely submitted in cassette B. Signed (signature on file) Vazquez Dillard MD 1328 END OF REPORT * ML=Testing performed at Main [facility] DEPARTMENT OF PATHOLOGY, [address] [place] [address] Vazquez Dillard M.D. Director CALLIE # [id number] 12 REFERENCE VALUE <1.0 (Negative) Test Performed by: [place] [address] Commodity Buyer: Castro Jerome II, M.D., Ph.D. 13 REFERENCE VALUE <1.0 (Negative) Test Performed by: [place] [address] Commodity Buyer: Castro Jerome II, M.D., Ph.D. 14 Please check this week 15 Test Performed by: [place] [address] Commodity Buyer: Castro Jerome II, M.D., Ph.D. 16 REFERENCE VALUE <1.0 (Negative) 17 REFERENCE VALUE <1.0 (Negative) Test Performed by: [place] [address] Commodity Buyer: Castro Jerome II, M.D., Ph.D. 18 Negative for cANCA and pANCA patterns by immunofluorescence. ADDITIONAL INFORMATION This test was developed and its performance characteristics determined by [facility] in a manner consistent with CLIA requirements. This test has not been cleared or approved by the U.S. Food and Drug Administration. Test Performed by: [facility] [address] Commodity Buyer: Castro Jerome II, M.D., Ph.D. 19 REFERENCE VALUE <15.0 (Negative) 20 REFERENCE VALUE <15.0 (Negative) Test Performed by: [facility] [place] [address] Commodity Buyer: Castro Jerome II, M.D., Ph.D. 21 Normal values may vary with age, season and geographic area. Titers above upper limits may be indicative of infection, however only a two dilution rise in titer is required to be considered significant. ASO titer will usually rise above upper limits within one week of exposure, increase to peak levels at 3-5 weeks and return to baseline level at 6-12 twelve months. 22 Please check this week 23 ADDITIONAL INFORMATION This test was developed and its performance characteristics determined by [facility] in a manner consistent with CLIA requirements. This test has not been cleared or approved by the U.S. Food and Drug Administration. Test Performed by: [facility] [place] [address] Commodity Buyer: Castro Jerome II, M.D., Ph.D. 24 Normal Range 180 to 914 Indeterminate Range 145 to 180 Deficient Range <145 25 Please check this week REFERENCE VALUE <4.0 (Negative) Test Performed by: [address] [address] Commodity Buyer: Castro Jerome II, M.D., Ph.D. 27 Negative serology. Celiac disease unlikely. However, approximately 10% of patients with celiac disease are seronegative. Also, patients who are already adhering to a gluten-free diet may be seronegative. If celiac disease is highly clinically suspected, consider HLA-DQ typing. Test Performed by: [address] [address] Commodity Buyer: Castro Jerome II, M.D., Ph.D. 28 REFERENCE VALUE <=1.0 (Negative) 29 REFERENCE VALUE <20.0 (Negative) 30 Tests for antibodies to dsDNA and OMAR antigens are not performed automatically unless the RHIANNA result is > or= 3.0 U. Studies performed at [facility] indicate that positive RHIANNA results <3.0 U are rarely accompanied by positive second order tests. Test Performed by: [address] [address] Commodity Buyer: Castro Jerome II, M.D., Ph.D. 31 Test Performed by: [address] [address] Commodity Buyer: Castro Jerome II, M.D., Ph.D. 32 Acute inflammation: >10.00 Procedures Date CPT Code Description Status 06/08/2017 73756 Injection Single Or Multiple Trigger Points Three Or Completed More Muscles 12/14/2016 18724 Sleep Study Unattended,HRT Rate,Oxygen Sat,Resp Completed Effort/Airflow 12/14/2016 Trigger PT Inj(S) Single Or Multiple Points 1 Or 2 Completed Muscles 09/10/2016 81662 Excision Ganglion Wrist/ Dorsal Or Volar; Primary Completed 09/10/2016 36450 Excision Ganglion Wrist/ Dorsal Or Volar; Primary Completed 09/08/2016 Trigger PT Inj(S) Single Or Multiple Points 1 Or 2 Completed Muscles 04/19/2016 Trigger PT Inj(S) Single Or Multiple Points 1 Or 2 Completed Muscles Encounters Type Date Location Provider CPT E/M Dx Office Visit 06/08/2017 Rheumatology Services Rodney Groves M.D. 50728 K65.4 1:00p Of Angelic Wei.Nga M54.6 K76.0 Office Visit 05/23/2017 8:20a [facility] Of Rodney Groves [address] M79.Nga Atwood M.D. M54.6 M54.5 G57.62 Z79.899 R20.2 Office Visit 12/28/2016 10:15a Pulmonology And Sleep Radha Burks, [address] G47.33 Services Of Angelic ALLRED, RN, CREATIVE DIRECTOR-BC G47.14 Office Visit 12/14/2016 9:00a [facility] Of Rodney Groves [address] M79.7 Angelic Self R20.2 G47.00 Z79.899 Z23 Office Visit 12/13/2016 8:45a [facility]ology [place] [address] R06.83 Services Of Angelic E66.09 Office Visit 10/13/2016 8:20a [facility] Of Rodney Groves [address]447 M79.7 Angelic Self R20.2 G47.00 Z79.899 F12.20 Office Visit 09/08/2016 4:20p [facility] Of Rod[facility] Groves [address] M79Demarcus Atwood M.D. R20.2 G47.00 Z79.899 Office Visit 09/02/2016 2:30p Orthopedic Services Of Nohemi Castrejon, 42994 D48.1 CAdrian Self R22.31 Office Visit 09/01/2016 4:00p [facility] Of Rodney Groves [address]100 M79.7 [employer] M.D. R20.2 G47.00 Z79.899 Office Visit 08/17/2016 9:30a [facility]ology Services Of Weston Shetty, CREATIVE DIRECTOR 18272 M79.7 [employer] R20.2 G47.00 Z79.899 Office Visit 07/29/2016 2:00p [place] [facility] Cheryl Crowley, 10283 M79.7 Services Of Bl[employer] M.D. R20.2 Office Visit 06/28/2016 9:30a [facility] Of [facility] Shetty, CREATIVE DIRECTOR 41797 M79.7 [employer]-[place] G47.00 M79.1 Z79.899 Office Visit 05/31/2016 8:00a [facility] Of [place] Shetty, CREATIVE DIRECTOR 13133 G89.4 [facility] M43.06 M79.1 G47.00 Z79.899 Office Visit 04/21/2016 10:15a [place] [facility] Cheryl Crowley, 89250 M79.7 Services Of Angelic Roberson.Giovanni R20.2 Office Visit 04/19/2016 9:40a [facility] Services Of Rodney Molinar, 98723 M79.1 [employer] M.D. I73.00 E55.9 M54.89 G62.9 M45.0 Office Visit 04/08/2016 8:00a [facility] Of Rodney Groves, 57478 M79.1 [employer] M.D. M54.5 I73.00 L30.9 R20.8 Office Visit 03/04/2016 3:40p [facility] Paxton Price, 59725 R53.83 Infectious Diseases Aramis M25.541 M25.542 R53.83 M25.541 M25.542 Office Visit 10/16/2013 9:10a [place] Samuel Davila [address] 088.81 Infectious Rubén Price M.D. Office Visit 09/26/2013 3:44p [place] Margot Bryant.Tomer 48520 088.81 Assoc, Hospitalists Office Visit 09/26/2013 9:33a [facility] Paxton Davila 49348 088.81 Infectious Diseases Aramis Price Office Visit 09/25/2013 3:43p [facility] Brenton Galvez M.D. 32273 088.81 Assoc, Hospitalists Office Visit 03/30/2013 9:40a [facility] Dario tGz, 85909 850.9 - Catie Self Office Visit 03/12/2013 4:00p [facility] Dario Gtz, 18043 850.9 - Catie Self Office Visit 03/07/2013 1:00p [facility] Dario Gtz, 67521 850.9 - Catie Self Plan of Care Future Appointment(s):09/06/2017 4:20 pm - Mukul Gunter M.D. at [facility] [place] 11/03/2017 3:00 pm - Rodney Groves M.D. at [facility]08/03/2017 - Rodney Groves M.D.M79.7 FibromyalgiaFollow up:Follow up in 2 or 3 months or sooner if [id number] Pain in thoracic onzsoL84.5 Low back painR20.2 Paresthesia of skinReferral:Mukul Gunter MD, Internal Medicine
[2017-08-12 16:57] VITALS: BP 120/79
--- NOTE | 2017-08-12 17:47 | UC ---
Skin Complaint HPI - HPI Summary HPI Summary: Patient was in the [facility] about 2 weeks ago was bit several times by black flies. Was seen at the urgent care August 03 and started on 8 day course of prednisone. Patient was on the prednisone his rash completely resolved. He has been off prednisone for 2 days now he has return of warm red rash on his right forearm volar aspect. There is no blisters / pustules he is not febrile and does not otherwise feel sick he has no lymph streaking and no swollen lymph nodes. Patient reports the rash to be very itchy - History of Current Complaint Chief Complaint: UCSkin Time Seen by Provider: 08/12/17 17:38 Stated Complaint: RASH Hx Obtained From: Patient Onset/Duration: Gradual Onset, Lasting Weeks, Worse Since - returned after going off of Prednisone Skin Exposure Onset/Duration: Weeks Ago Timing: Constant Pain Intensity: 7 Pain Scale Used: 0-10 Numeric Location: Discrete - right forearm volar aspect Character: Redness Aggravating Factor(s): Nothing Alleviating Factor(s): Nothing Associated Signs & Symptoms: Positive: Rash Related History: Possible Reaction to: Insect - Allergy/Home Medications Allergies/Adverse Reactions: Allergies Allergy/AdvReac Type Severity Reaction Status Date / Time No Known Allergies Allergy Verified 08/12/17 16:57 Home Medications: Home Medications Calamine/Pramoxine LOTION* [Caladryl LOTION*] 1 applic .SEE ORDER PRN 08/12/17 [ History] Review of Systems Constitutional: Negative Skin: Rash - red blanching rash right forearm with a seperate patch right AC with some satalitte lesions Eyes: Negative ENT: Negative Respiratory: Negative Cardiovascular: Negative Gastrointestinal: Negative Genitourinary: Negative Motor: Negative Neurovascular: Negative Musculoskeletal: Negative Neurological: Negative Psychological: Negative Is Patient Immunocompromised?: No All Other Systems Reviewed And Are Negative: Yes PMH/Surg Hx/FS Hx/Imm Hx Previously Healthy: No - fibromyalgia, autoimmune disorders - Surgical History Surgical History: Yes Surgery Procedure, Year, and Place: gallbladder 2013 with hernia repair, [facility] - Family History Known Family History: Positive: Cardiac Disease, Other - Cancer. Mother: Multiple sclerosis, lung infection. Family History: KIDNEY STONES - DAD - Social History Occupation: Unemployed Lives: With Family Alcohol Use: None Substance Use Type: None Substance Use Comment - Amount & Last Used: medicinal Smoking Status (MU): Former Smoker Type: Cigarettes Amount Used/How Often: pack a day for 14 yrs Have You Smoked in the Last Year: No When Did the Patient Quit Smoking/Using Tobacco: age 30 - Immunization History Most Recent Influenza Vaccination: unknown Most Recent Tetanus Shot: unknown Most Recent Pneumonia Vaccination: unknown Physical Exam Triage Information Reviewed: Yes Appearance: Well-Appearing, No Pain Distress, Well-Nourished Vital Signs: Initial Vital Signs Temp 97.9 F 08/12/17 16:50 Pulse 70 08/12/17 16:50 Resp 16 08/12/17 16:50 BP 120/79 08/12/17 16:50 Pulse Ox 96 08/12/17 16:50 Vital Signs Reviewed: Yes Eye Exam: Normal Eyes: Positive: Conjunctiva Clear ENT Exam: Normal ENT: Positive: Normal ENT inspection, Hearing grossly normal. Negative: Trismus , Muffled voice, Hoarse voice Dental Exam: Normal Neck exam: Normal Neck: Positive: Supple, Nontender, No Lymphadenopathy Respiratory Exam: Normal Respiratory: Positive: Chest non-tender, Lungs clear, Normal breath sounds, No respiratory distress, No accessory muscle use Cardiovascular Exam: Normal Cardiovascular: Positive: RRR, No Murmur, Pulses Normal, Brisk Capillary Refill Musculoskeletal Exam: Normal Musculoskeletal: Positive: Strength Intact, ROM Intact, No Edema Neurological Exam: Normal Neurological: Positive: Alert, Muscle Tone Normal Psychological Exam: Normal Skin Exam: Normal Course/Dx - Course Course Of Treatment: longer prednisone taper,ok to use vistaril follow with Dr. Groves - Diagnoses Provider Diagnoses: contact dermititis right forearm Discharge - Sign-Out/Discharge Documenting (check all that apply): Discharge/Admit/Transfer - Discharge Plan Condition: Stable Disposition: HOME Prescriptions: predniSONE TAB* [Deltasone 20 MG TAB*] 20 mg PO DAILY #26 tab Patient Education Materials: Urticaria (ED), Cold Compress or Soak (ED) Referrals: Rodney Groves MD [Medical Doctor] - 1 Week Mukul Gunter MD [Medical Doctor] - 1 Week - Billing Disposition and Condition Condition: STABLE Disposition: Home
== END 2017-08-12 18:00 | disposition home or self-care (01) ==
LOC: UCEAST 16:35
DX: L25.9 Unspecified contact dermatitis, unspecified cause (principal); M79.7 Fibromyalgia; D89.89 Other specified disorders involving the immune mechanism, not elsewhere classified; Z87.891 Personal history of nicotine dependence; Z82.49 Family history of ischemic heart disease and other diseases of the circulatory system; Z80.9 Family history of malignant neoplasm, unspecified; Z82.0 Family history of epilepsy and other diseases of the nervous system; Z83.6 Family history of other diseases of the respiratory system; Z84.1 Family history of disorders of kidney and ureter
CPT/HCPCS: 99212; G0463

== ENCOUNTER 2017-09-28 07:11 | Emergency (ER) | payer BC ==
--- NOTE | 2017-09-29 16:41 | PN ---
Progress Note - Progress Note Date of Service: 09/29/17 Note: labs wbc normal. electrolytes normal. no change.
--- NOTE | 2017-09-29 16:43 | PN ---
Progress Note - Progress Note Date of Service: 09/29/17 Note: patient monospot came back positive. please call and inform patient.
== END 2017-09-28 07:34 | disposition left against medical advice (07) ==
LOC: UCEAST 07:11
DX: R10.9 Unspecified abdominal pain (principal); R50.9 Fever, unspecified; Z53.21 Procedure and treatment not carried out due to patient leaving prior to being seen by health care provider

== ENCOUNTER 2017-09-28 13:28 | Emergency (ER) | payer BC ==
[2017-09-28 14:22] VITALS: BP 128/87
--- NOTE | 2017-09-28 16:22 | UC ---
Abdominal Pain Male HPI - HPI Summary HPI Summary: The patient presents here with a long history of left upper quadrant abdominal pain. This pain is been occurring intermittently for months. He was seen by a GI specialist back in June of this year. His roofing apprentice recommended both in the ED G as well as a colonoscopy. He lost his insurance and never had those studies performed. He states that for the past 2 weeks his symptoms have markedly worsened. The pain increases with food. 2-3 episodes of diarrhea day. He states that he has lost 20 pounds in the past 2-3 weeks. He feels feverish at times. He has some anorexia. He states that he has been fatigued for months. His a long history of neuropathy. He requests HIV testing. He states that he has had microscopic hematuria for a number of months. He is scheduled to see a urologist tomorrow. - History of Current Complaint Chief Complaint: UCAbdominalPain Stated Complaint: ABDOMINAL PAIN Time Seen by Provider: 09/28/17 15:54 Hx Obtained From: Patient Onset/Duration: Gradual Onset, Lasting Days Timing: Constant Severity Initially: Mild Severity Currently: Moderate Pain Intensity: 7 Pain Scale Used: 0-10 Numeric Location: Discrete At: LUQ Radiates: No Character: Colicy, Cramping Aggravating Factor(s): Food Alleviating Factor(s): Nothing Associated Signs And Symptoms: Positive: Decreased Appetite, Diarrhea - Allergies/Home Medications Allergies/Adverse Reactions: Allergies Allergy/AdvReac Type Severity Reaction Status Date / Time No Known Allergies Allergy Verified 09/28/17 14:22 PMH/Surg Hx/FS Hx/Imm Hx Previously Healthy: Yes Neurological History: Other Other Neurological History: neuropathy - Surgical History Surgical History: Yes Surgery Procedure, Year, and Place: gallbladder 2014 with hernia repair, [facility] d[facility] - Family History Known Family History: Positive: Cardiac Disease, Other - Cancer. Mother: Multiple sclerosis, lung infection. Family History: KIDNEY STONES - DAD - Social History Alcohol Use: None Substance Use Type: None Substance Use Comment - Amount & Last Used: medicinal Smoking Status (MU): Former Smoker Type: Cigarettes Amount Used/How Often: pack a day for 14 yrs Have You Smoked in the Last Year: No When Did the Patient Quit Smoking/Using Tobacco: age 30 - Immunization History Most Recent Influenza Vaccination: unknown Most Recent Tetanus Shot: unknown Most Recent Pneumonia Vaccination: unknown Review of Systems Constitutional: Fatigue Skin: Negative Eyes: Negative ENT: Negative Respiratory: Negative Cardiovascular: Negative Gastrointestinal: Abdominal Pain, Diarrhea Genitourinary: Negative Motor: Negative Neurovascular: Negative Musculoskeletal: Negative Neurological: Paresthesia, Numbness Psychological: Negative Is Patient Immunocompromised?: No All Other Systems Reviewed And Are Negative: Yes Physical Exam Triage Information Reviewed: Yes Appearance: Well-Appearing, No Pain Distress, Well-Nourished Vital Signs: Initial Vital Signs Temp 99.2 F 09/28/17 14:18 Pulse 70 09/28/17 14:18 Resp 16 09/28/17 14:18 BP 128/87 09/28/17 14:18 Pulse Ox 100 09/28/17 14:18 Vital Signs Reviewed: Yes Eyes: Positive: Conjunctiva Clear ENT: Negative: Pharynx normal, Pharyngeal erythema, Nasal congestion, Nasal drainage, Trismus, Muffled voice, Hoarse voice, Sinus tenderness Neck: Positive: Supple, Nontender, No Lymphadenopathy Respiratory: Positive: Lungs clear, Normal breath sounds, No respiratory distress, No accessory muscle use Cardiovascular: Positive: RRR, No Murmur Abdomen Description: Positive: CVA Tenderness (L). Negative: Nontender - diffusely tender, CVA Tenderness (R), Distended, Guarding Bowel Sounds: Positive: Present Musculoskeletal: Positive: ROM Intact, No Edema Neurological: Positive: Alert Psychological Exam: Normal Skin Exam: Normal Diagnostics - Laboratory Diagnostic Studies Completed/Ordered: ua: +1 rbc - Radiology No standard instances Xray Interpretation: Positive (See Comments) - . Distal colonic diverticulosis. There is very mild and questionable infiltration of the pericolonic fat surrounding the descending colon which could be seen in the setting of early diverticulitis Radiology Interpretation Completed By: Radiologist Abd Pain Male Course/Dx - Differential Dx/Clinical Impression Provider Diagnoses: suspect diverticultis. fatigue Discharge - Sign-Out/Discharge Documenting (check all that apply): Patient Departure - Discharge Plan Condition: Stable Disposition: HOME Patient Education Materials: Diverticulitis (ED) Referrals: Rodney Groves MD [Primary Care Provider] - - Billing Disposition and Condition Condition: STABLE Disposition: Home
--- NOTE | 2017-09-28 17:20 | RAD ---
CLINICAL HISTORY: Left-sided abdominal pain and hematuria COMPARISON: Similar CT examination dated May 31, 2017 TECHNIQUE: Noncontrast CT examination of the abdomen and pelvis from the lung bases through the initial tuberosities. FINDINGS: VISUALIZED LUNG BASES: At the left lower lobe there is a partially calcified 11 mm granuloma. Otherwise the lung bases are clear.. ABDOMEN AND PELVIS: Evaluation of the solid organs and vasculature is limited without intravenous contrast. The liver is homogenously hypodense. There are no suspicious liver masses. The spleen, pancreas and adrenal glands are grossly normal in appearance. The gallbladder is normal. The kidneys are normal in appearance without focal mass, calcification or signs of hydronephrosis. Evaluation of the gastrointestinal tract is limited without oral contrast. The small and large bowel are not distended.The patient's normal appendix is identified in the right lower quadrant with gas in the lumen (axial image 130). There are diverticula seen throughout the length of the colon becoming more concentrated at the distal colon. There is very mild degree of infiltration surrounding the descending colon. There is no evidence of perforation or drainable fluid collection. There is no gross retroperitoneal or mesenteric lymphadenopathy. The pelvic viscera is normal in appearance. The abdominal aorta and iliac arteries are normal in course and diameter. There are no sinister bone lesions. IMPRESSION: 1. Distal colonic diverticulosis. There is very mild and questionable infiltration of the pericolonic fat surrounding the descending colon which could be seen in the setting of early diverticulitis. 2. No renal calculi or signs of obstructive uropathy. 3. The liver is homogenously hypodense which could be seen in the setting of hepatic steatosis.
[2017-09-29 11:06] LABS: ABS Basophils 0.1 10^3/ul (0-0.2); ABS Eosinophils 0.1 10^3/ul (0-0.6); ABS Lymphocytes 2.3 10^3/ul (1.0-4.8); ABS Monocytes 0.7 10^3/ul (0-0.8); ABS Neutrophils 6.3 10^3/ul (1.5-7.7); ABS Nucleated RBC 0 10^3/ul; Eosinophil % 0.7 % (0-6); Hematocrit 47 % (42-52); Hemoglobin 15.6 g/dl (14.0-18.0); Lymphocyte % 23.9 % (25-47); Mean Corpuscular HGB Conc 34 g/dl (31-36); Mean Corpuscular Hemoglobin 31 pg (27-31); Mean Corpuscular Volume 93 fL (80-94); Mean Platelet Volume 8.5 um3 (7.4-10.4); Nucleated Red Blood Cells % 0; Platelet Count 353 10^3/ul (150-450); Red Blood Count 4.99 10^6/ul (4.00-5.40); Red Cell Distribution Width 14 % (10.5-15); White Blood Count 9.4 10^3/ul (3.5-10.8)
[2017-09-29 11:46] LABS: EGFR Non-African American 86.8 (>60)
--- NOTE | 2017-09-29 17:54 | PN ---
Progress Note - Progress Note Date of Service: 09/29/17 Note: patient positive for mono. please call and inform patient.
== END 2017-09-28 17:40 | disposition home or self-care (01) ==
LOC: UCEAST 13:28
DX: R10.12 Left upper quadrant pain (principal); R53.83 Other fatigue; R19.7 Diarrhea, unspecified; K57.30 Diverticulosis of large intestine without perforation or abscess without bleeding; B27.90 Infectious mononucleosis, unspecified without complication; Z90.49 Acquired absence of other specified parts of digestive tract; Z82.49 Family history of ischemic heart disease and other diseases of the circulatory system; Z80.9 Family history of malignant neoplasm, unspecified; Z80.1 Family history of malignant neoplasm of trachea, bronchus and lung; Z80.51 Family history of malignant neoplasm of kidney; Z87.891 Personal history of nicotine dependence
CPT/HCPCS: 36415; 74176; 80053; 81003; 84443; 85025; 86308; 86703; 99211; G0463

== ENCOUNTER 2017-10-14 07:27 | Emergency (ER) | payer BC ==
[2017-10-14 07:41] VITALS: BP 140/88
--- NOTE | 2017-10-14 08:03 | UC ---
Abdominal Pain Male HPI - HPI Summary HPI Summary: Please see this patient's history of present illness from his visit 09/28/2017 for further information. The patient is a 42-year-old male with a long history of chronic abdominal pain he states that in the past 3-4 weeks his pain has been worsening. He has also been experiencing extreme fatigue. He is currently undergoing a workup for microscopic hematuria. His appetite has decreased. He has felt anorexic. During the visit with me on 09/28/[address] of the abdomen and pelvis was obtained. It was suspicious for diverticulitis. He was treated with a 10 day course of Bactrim double strength and Flagyl. He had a repeat CAT scan performed on 10/07/17 at the [facility]. The patient showed me the results of his CT. On the he had no evidence of diverticulitis. There was some mild stranding around the left kidney. There was a nonobstructing left kidney stone. Patient presents here today because he is very fatigued and is starting a new job early next week. During his visit on 09/28/17 he had blood work obtained. His CBC was normal. He had a positive Monospot. He had requested an HIV test and that was negative. He has a history of anxiety as well as fibromyalgia. He has been seen in the past by a GI doctor. Upper endoscopy was recommended but was not performed. He has had no recent fever. - History of Current Complaint Chief Complaint: UCGeneralIllness Stated Complaint: FATIGUE,ABD PAIN, SORE THROAT Time Seen by Provider: 10/14/17 07:38 Hx Obtained From: Patient Onset/Duration: Gradual Onset, Lasting Weeks Severity Initially: Moderate Severity Currently: Moderate Pain Intensity: 7 Pain Scale Used: 0-10 Numeric Location: Diffuse, Other - abd pain worse LUQ, muscular pain all over, and sore throat Radiates: No Radiates to: Back Character: Aching Aggravating Factor(s): Food Alleviating Factor(s): Nothing Associated Signs And Symptoms: Negative: Chest Pain, Dizzy, Constipation, Blood in Stool, Urinary Symptoms, Decreased Appetite - Allergies/Home Medications Allergies/Adverse Reactions: Allergies Allergy/AdvReac Type Severity Reaction Status Date / Time No Known Allergies Allergy Verified 10/14/17 07:40 PMH/Surg Hx/FS Hx/Imm Hx Previously Healthy: Yes GI/ History: Diverticulitis Psychological History: Anxiety - Surgical History Surgical History: Yes Surgery Procedure, Year, and Place: gallbladder 2014 with hernia repair, sabrina dixon - Family History Known Family History: Positive: Cardiac Disease, Other - Cancer. Mother: Multiple sclerosis, lung infection. Family History: KIDNEY STONES - DAD - Social History Alcohol Use: None Substance Use Type: None Substance Use Comment - Amount & Last Used: medicinal Smoking Status (MU): Former Smoker Type: Cigarettes Amount Used/How Often: pack a day for 14 yrs Have You Smoked in the Last Year: No When Did the Patient Quit Smoking/Using Tobacco: age 30 - Immunization History Most Recent Influenza Vaccination: unknown Most Recent Tetanus Shot: unknown Most Recent Pneumonia Vaccination: unknown Review of Systems Constitutional: Fatigue Skin: Negative Eyes: Negative ENT: Sore Throat, Ear Ache, Nasal Discharge Respiratory: Negative Cardiovascular: Negative Gastrointestinal: Negative Genitourinary: Negative Motor: Negative Neurovascular: Negative Musculoskeletal: Negative Neurological: Negative Psychological: Negative Is Patient Immunocompromised?: No All Other Systems Reviewed And Are Negative: Yes Physical Exam Triage Information Reviewed: Yes Appearance: Well-Appearing, No Pain Distress, Well-Nourished Vital Signs: Initial Vital Signs Temp 98.9 F 10/14/17 07:34 Pulse 86 10/14/17 07:34 Resp 18 10/14/17 07:34 BP 140/88 10/14/17 07:34 Pulse Ox 100 10/14/17 07:34 Vital Signs Reviewed: Yes Eyes: Positive: Conjunctiva Clear ENT: Positive: Hearing grossly normal, Pharynx normal. Negative: Nasal congestion, Nasal drainage, TMs normal - left TM retracted, Trismus, Muffled voice, Hoarse voice Neck: Positive: Supple, Nontender, No Lymphadenopathy Respiratory: Positive: Lungs clear, Normal breath sounds, No respiratory distress, No accessory muscle use Cardiovascular: Positive: RRR, No Murmur Abdomen Description: Negative: Nontender - diffuse mildly tenderness Bowel Sounds: Positive: Present Musculoskeletal: Positive: ROM Intact, No Edema Neurological: Positive: Alert Psychological Exam: Normal Skin Exam: Normal Diagnostics - Laboratory Diagnostic Studies Completed/Ordered: strep(-) Abd Pain Male Course/Dx - Course Course Of Treatment: patient has appt next week with new provider - Differential Dx/Clinical Impression Provider Diagnoses: Fatigue/mono. Left serous otitis media. anorexia/wt loss Discharge - Sign-Out/Discharge Documenting (check all that apply): Patient Departure - Discharge Plan Condition: Stable Disposition: HOME Prescriptions: Fluticasone NASAL SPRAY 50MCG* [Flonase NASAL SPRAY 50MCG*] 2 spray BOTH NARES BID #1 btl Patient Education Materials: Mononucleosis (ED), Serous Otitis Media (ED) Referrals: Rodney Groves MD [Primary Care Provider] - Additional Instructions: [facility] Gastroenterology [phone] phone [phone] fax [address] [place] [address] please call and set up an appt see your primary next week as planned recheck for new or worsening symptoms - Billing Disposition and Condition Condition: STABLE Disposition: Home
== END 2017-10-14 09:02 | disposition home or self-care (01) ==
LOC: UCEAST 07:27
DX: B27.90 Infectious mononucleosis, unspecified without complication (principal); R53.83 Other fatigue; H65.92 Unspecified nonsuppurative otitis media, left ear; R63.0 Anorexia; R63.4 Abnormal weight loss; Z87.891 Personal history of nicotine dependence
CPT/HCPCS: 81003; 87086; 87651; 99212; G0463

== ENCOUNTER 2017-12-23 09:41 | Day surgery (SDC) | payer BC ==
[~2017-12-23 09:41] MED LIST changes: -Acetaminophen TAB* 325 MG PO PRN; -DiMENhydriNATE IV* 50 MG/ML VIAL IV PUSH PRN; -Famotidine IV* 10 MG/ML 2 ML (20 mg) IV ONE; -oxyCODONE TAB* 5 MG TAB PO PRN
[2017-12-23] MEDS ORDERED: fentaNYL* 50 MCG/ML 2 ML VIAL (100 MCG VIAL) ONE (11:02)
[2017-12-23] MEDS ORDERED: Propofol* 10 MG/ML 20 ML BTL IV PUSH ONE ×2 (11:02→11:37)
[2017-12-23] MEDS ORDERED: Midazolam* 1 MG/ML 5 ML VIAL (5 MG) ONE (11:02)
[2017-12-23] MEDS ORDERED: Succinylcholine* 20 MG/ML 10 ML VIAL ONE (11:02)
[2017-12-23 13:06] VITALS: BP 131/95
--- NOTE | 2017-12-24 11:02 | PRO ---
DATE: 12/23/17 [facility] PROCEDURE: Upper gastrointestinal endoscopy and Bx EG junction scarring at 39 cm, gastric body Bx, CLOtest, 3rd portion of duodenum Bx INDICATION: This 42-year-old man with fibromyalgia and chronic pain syndrome had been complaining of upper abdominal pain. There was also a complaint of weight loss, though documentation in the [facility] chart shows less than had been originally stated. He states that he took the last week off from work and has concentrated on eating and has put on 5 pounds. He states the pain is there all the time, but gets worse after eating. It is there when he gets up at 6:00 in the morning and sensed throughout the day. It is an upper abdominal band like distress that goes a little bit to the left. There has been no vomiting. His bowel habit is regular once a day, sometimes twice, a little bit less now as he states he has been eating less. Couple of weeks ago, he was placed on omeprazole 40 mg which he has been taking mostly in the morning. He takes his other medications predominantly around 9: 00 at night. The diet consists of a protein shake at around 9:00 a.m., another for lunch and then a small dinner. Again, he has not had any vomiting and has not complained of dysphagia. Upper endoscopy in March 2014 was said to be negative (duodenal erythema) per Dr Washington in the [employer] system. Informed consent was obtained and limitations of the findings explained. ENDOSCOPIST: Dr. Paiz. ANESTHESIA: Dr. Felix. FINDINGS: He was taken to the operating room after all relevant documentation done. His anesthesia was managed smoothly. EGD: Larynx - initial views show before entry just a small amount of blood emanating from behind the arytenoids. Esophagus - easily entered and the mucosa is normal in the upper, mid and lower esophagus, though at 39 to 40 there is some scarring and irregularity and minimal erosions diffusely around the EG circumference. This is not really a stricture. There is no Salas's seen. During the withdrawal phase, biopsies were taken around the EG junction inflammation. Stomach - generally normal mucosa in the cardia, fundus, body, and antrum. There were no erosions and no polyps. Two biopsies were taken greater curvature , mid body and a CLOtest. Duodenum - the pylorus, bulb, and second through fourth portions appear normal. Because of the reported weight loss, biopsies were taken of the third portion of the duodenum. IMPRESSION: 1. Focal esophagitis visually consistent with a peptic or caustic effect at the EG junction. He is on omeprazole 40 mg and confirmed his taking it in the morning. Ranitidine will be added in the evening, 300 mg, and he was counseled to take his medications with plenty of water and early in the day for all that he can. His was listening attentively. 2. Chronic abdominal pain - potentially related to the endoscopic findings today, though response to treatment on the antireflux program will be needed to corroborate that. There is no evidence that any of this relates to the transient haziness in the mesenteric fat seen on the 05/31/[address] scan that had 80% resolved 2 weeks later on a contrast scan and was clearly totally gone on an September 2017 exam. Findings then were not adjacent to the colon and thus unlikely to be from diverticulitis and not in the retroperitoneum and are unexplained, but were mild and transient. Addendum: duodenal Bx normal - Clotest negative and EG short Salas's with no dysplasia [id number]/[facility] #: [id number] [facility]
== END 2017-12-23 13:31 | disposition home or self-care (01) ==
LOC: OR 09:41
PROVIDERS: ATTEND Internal Medicine Gastroenterology
DX: K21.0 Gastro-esophageal reflux disease with esophagitis (principal); R10.10 Upper abdominal pain, unspecified; R63.4 Abnormal weight loss; G89.29 Other chronic pain; M79.7 Fibromyalgia; I10 Essential (primary) hypertension; E78.5 Hyperlipidemia, unspecified; G47.33 Obstructive sleep apnea (adult) (pediatric)
CPT/HCPCS: 87077; 88305; 88342; J0330; J2250; J2704; J3010

== ENCOUNTER 2019-03-21 01:58 | Emergency (ER) | payer SELFPAY ==
[2019-03-21] MEDS ORDERED: NS 0.9% 1000 ML** 1,000 ML IV ONE (02:06)
[2019-03-21] MEDS ORDERED: Ketorolac INJ* 30 MG/ML 1 ML VIAL IV PUSH ONE (02:07)
[2019-03-21] MEDS ORDERED: Ondansetron INJ* 2 MG/ML VIAL IV ONE (02:07)
[2019-03-21] MEDS ORDERED: Morphine 4 MG/ML VIAL (1 ml) 4 MG/ML VIAL IV ONE ×2 (02:07→04:43)
--- NOTE | 2019-03-21 02:12 | ED ---
Abdominal Pain/Male - HPI Summary HPI Summary: Pt is a 43 y/o M presenting to the ED with a chief complaint of abd pain initially onset at midnight tonight, when he was woken out of his sleep with the pain. He states the pain is in his LLQ and radiates down to the suprapubic region. He also reports nausea and vomiting. Denies fever. - History of Current Complaint Chief Complaint: EDAbdPain Stated Complaint: VOMITTING PER PT Time Seen by Provider: 03/21/19 02:02 Hx Obtained From: Patient Onset/Duration: Sudden Onset, Lasting Hours, Still Present Timing: Constant, Lasting Hours Severity Initially: Moderate Severity Currently: Severe Pain Intensity: 8 Pain Scale Used: 0-10 Numeric Location: Discrete At: LLQ Radiates: Yes Radiates to: Other - suprapubic Aggravating Factor(s): Nothing Alleviating Factor(s): Nothing Associated Signs And Symptoms: Positive: Nausea, Vomiting. Negative: Fever - Allergies/Home Medications Allergies/Adverse Reactions: Allergies Allergy/AdvReac Type Severity Reaction Status Date / Time No Known Allergies Allergy Verified 04/21/18 18:29 Home Medications: Home Medications hydrOXYzine HCL TAB* [Atarax 25 MG TAB*] 25 mg PO DAILY 03/21/19 [History Confirmed 03/21/19] PMH/Surg Hx/FS Hx/Imm Hx Previously Healthy: Yes Endocrine/Hematology History: Denies: Hx Diabetes, Hx Thyroid Disease Cardiovascular History: Reports: Hx Angina, Hx Peripheral Vascular Disease - reynauds Denies: Hx Coronary Artery Disease, Hx Hypertension, Hx Myocardial Infarction , Hx Valvular Heart Disease, Other Cardiovascular Problems/Disorders Respiratory History: Reports: Hx Chronic Bronchitis, Hx Pneumonia - 2009, Hx Sleep Apnea - DOESN'T HAVE CPAP, Other Respiratory Problems/Disorders - LUNG FUNGUS Denies: Hx Asthma, Hx Chronic Obstructive Pulmonary Disease (COPD) GI History: Reports: Hx Gastroesophageal Reflux Disease - DYSPAHAGIA, AND UNABLE TO SWALLOW WHOLE FOODS HAS PAIN AFTER EATING, Hx Hiatal Hernia - surgically repaired Denies: Hx Ulcer History: Reports: Hx Kidney Stones - HISTORY OF Denies: Hx Renal Disease Musculoskeletal History: Reports: Hx Arthritis - OSTEO IN SPINE AND HIP, Hx Back Problems Sensory History: Reports: Hx Contacts or Glasses - glasses Denies: Hx Hearing Aid Opthamlomology History: Reports: Hx Contacts or Glasses - glasses Neurological History: Reports: Hx Headaches, Hx Nerve Disease, Other Neuro Impairments/Disorders - RAYNAUDS KNEES DOWN AND HEAD INJURY FEW YEARS AGO Psychiatric History: Reports: Hx Anxiety - ON MEDICATION, Hx Depression - Cancer History Hx Chemotherapy: No Hx Radiation Therapy: No Hx Palliative Cancer Treatment: No - Surgical History Surgery Procedure, Year, and Place: gallbladder 2014 with hernia repair, [facility] [place] 2010 Hx Anesthesia Reactions: Yes - WOKE UP DURING PROCEDURE Infectious Disease History: No Infectious Disease History: Reports: History Other Infectious Disease - LYME Denies: Hx Clostridium Difficile, Hx Hepatitis, Hx Human Immunodeficiency Virus (HIV), Hx of Known/Suspected MRSA, Hx Shingles, Hx Tuberculosis, Hx Known/ Suspected VRSA, Traveled Outside the [place] in Last 30 Days - Family History Known Family History: Positive: Cardiac Disease, Other - Cancer. Mother: Multiple sclerosis, lung infection. Family History: KIDNEY STONES - DAD - Social History Alcohol Use: None Hx Substance Use: No Substance Use Type: Reports: None Substance Use Comment - Amount & Last Used: medicinal Hx Tobacco Use: No Smoking Status (MU): Former Smoker Type: Cigarettes Amount Used/How Often: pack a day for 14 yrs Have You Smoked in the Last Year: No Review of Systems Negative: Fever Positive: Abdominal Pain, Vomiting, Nausea All Other Systems Reviewed And Are Negative: Yes Physical Exam - Summary Physical Exam Summary: Appearance: Colicky-appearing man in obvious discomfort secondary to pain Skin: Warm, dry, no obvious rash Eyes: sclera anicteric, no conjunctival pallor ENT: mucous membranes moist, pharynx appears normal Neck: Supple, nontender Respiratory: Clear to auscultation, no signs of respiratory distress Cardiovascular: Normal S1, S2. No murmurs. Normal distal pulses in tibial and radial bilaterally. Abdomen: Pt is apprehensive and difficult to examine. Will re-check when pain is controlled. Musculoskeletal: Normal, Strength/ROM Intact Neurological: A&Ox3, awake and alert, mentation is normal, speech is fluent and appropriate Psychiatric: affect is normal, does not appear anxious or depressed Triage Information Reviewed: Yes Vital Signs On Initial Exam: Initial Vitals Temp Pulse Resp BP Pulse Ox 96.0 F 65 16 131/92 100 03/21/19 01:58 03/21/19 01:58 03/21/19 01:58 03/21/19 01:58 03/21/19 01:58 Vital Signs Reviewed: Yes Procedures - Sedation Patient Received Moderate/Deep Sedation with Procedure: No Diagnostics - Vital Signs Vital Signs Temp Pulse Resp BP Pulse Ox 03/21/19 01:58 96.0 F 65 16 131/92 100 - Laboratory Result Diagrams: 03/21/19 02:25 03/21/19 02:25 Lab Statement: Any lab studies that have been ordered have been reviewed, and results considered in the medical decision making process. - CT CT a/p CT Interpretation Completed By: Radiologist Summary of CT Findings: 1. There is diffuse colonic diverticulosis with focal wall thickening and inflammatory changes noted surrounding the descending colon concerning for acute diverticulitis. Recommend clinical correlation and nonemergent endoscopic evaluation. 2. There is trace free fluid noted overlying the liver. 3. There is a large left-sided hydrocele noted. ED physician has reviewed this report. Abdominal Pain Male Course/Dx - Course Course Of Treatment: Pt is a 43 y/o M presenting to the ED with a chief complaint of abd pain initially onset at midnight tonight, when he was woken out of his sleep with the pain. He states the pain is in his LLQ and radiates down to the suprapubic region. He also reports nausea and vomiting. Denies fever. On exam, pt is a colicky-appearing man in obvious discomfort secondary to pain. He is apprehensive to abd exam, I will re-assess when pain is controlled. CT a/p shows: 1. There is diffuse colonic diverticulosis with focal wall thickening and inflammatory changes noted surrounding the descending colon concerning for acute diverticulitis. Recommend clinical correlation and nonemergent endoscopic evaluation. 2. There is trace free fluid noted overlying the liver. 3. There is a large left-sided hydrocele noted. Pt will be d/c'ed with dx of diverticulitis and instructed to f/u outpatient. He is stable and agreeable with this plan. - Diagnoses Provider Diagnoses: Diverticulitis Discharge ED - Sign-Out/Discharge Documenting (check all that apply): Patient Departure - Discharge Plan Condition: Good Disposition: HOME Prescriptions: Amoxicillin/Clavulanate TAB* [Augmentin TAB 875*] 875 mg PO BID #20 tab Ondansetron ODT TAB* [Zofran 4 MG Odt TAB*] 8 mg PO Q6H PRN #15 tab.odt PRN Reason: Nausea oxyCODONE/Acetamin 5/325 MG* [Percocet 5/325 TAB*] 2 tab PO Q4H PRN #20 tab MDD 6 PRN Reason: Pain - Severe Patient Education Materials: Diverticulitis (ED) Forms: *Work Release Referrals: [facility] [Outside] Additional Instructions: Diverticulitis typically takes several days on antibiotics before you can expect to feel improved, so make sure to rest at home, take the antibiotic and the pain medications. If you are not starting to improve by the end of the week you should be seen again. - Billing Disposition and Condition Condition: GOOD Disposition: Home - Attestation Statements Document Initiated by Ten: Yes Documenting Scribe: Roseanne Westbrook Provider For Whom Ten is Documenting (Include Credential): Hitesh Arce MD. Scribe Attestation: Roseanne Nava, drewed for Hitesh Arce MD. on 03/21/19 at 0621. Scribe Documentation Reviewed: Yes Provider Attestation: The documentation as recorded by the hemaibeRoseanne accurately reflects the service I personally performed and the decisions made by Hitesh teran MD. Status of Scribe Document: Viewed
[2019-03-21 02:32] LABS: ABS Basophils 0.1 10^3/ul (0-0.2); ABS Lymphocytes 1.3 10^3/ul (1.0-4.8); ABS Monocytes 0.9 10^3/ul (0-0.8); ABS Neutrophils 10.8 10^3/ul (1.5-7.7); Eosinophil % 0.2 %; Hematocrit 44 % (42-52); Lymphocyte % 9.8 %; Mean Corpuscular HGB Conc 34 g/dL (31-36); Mean Corpuscular Hemoglobin 32 pg (27-31); Mean Corpuscular Volume 93 fL (80-94); Mean Platelet Volume 7.5 fL (7.4-10.4); Platelet Count 275 10^3/uL (150-450); Red Blood Count 4.72 10^6 /uL (4.18-5.48); Red Cell Distribution Width 13 % (10-15); White Blood Count 13.1 10^3/uL (3.5-10.8)
[2019-03-21 02:48] LABS: Albumin 4.6 g/dL (3.2-5.2); Albumin/Globulin Ratio 1.8 (1-3); BUN/Creatinine Ratio 11.9 (8-20); Calcium 9.6 mg/dL (8.6-10.3); EGFR African American 90.2 (>60); EGFR Non-African American 74.6 (>60); Globulin 2.6 g/dL (2-4); Potassium 3.6 mmol/L (3.5-5.0); Total Bilirubin 1.7 mg/dL (0.2-1.0); Total Protein 7.2 g/dL (6.4-8.9)
[2019-03-21 04:30] LABS: Urine Appearance Turbid; Urine Bilirubin Negative (Negative); Urine Blood Negative (Negative); Urine Color Yellow; Urine Glucose Negative (Negative); Urine Ketones 2+ (Negative); Urine Nitrite Negative (Negative); Urine Protein Negative (Negative); Urine Specific Gravity 1.019 (1.010-1.030); Urine Urobilinogen Negative (Negative)
[2019-03-21] MEDS ORDERED: Amoxicillin/Clavulanate TAB* 875 MG PO ONE (05:54)
[2019-03-21] MEDS ORDERED: oxyCODONE/Acetamin 5/325 MG* TAB PO ONE (05:57)
[2019-03-21 06:05] VITALS: BP 111/72
== END 2019-03-21 06:20 | disposition home or self-care (01) ==
LOC: ED 01:58
DX: K57.30 Diverticulosis of large intestine without perforation or abscess without bleeding (principal); N43.3 Hydrocele, unspecified; R11.2 Nausea with vomiting, unspecified; F41.9 Anxiety disorder, unspecified; Z90.49 Acquired absence of other specified parts of digestive tract; Z87.891 Personal history of nicotine dependence
CPT/HCPCS: 36415; 74176; 80053; 81003; 85025; 96361; 96374; 96375; 96376; 99284; A9270-GY; J1885; J2270; J2405